=== PATIENT | male | born 1995 | race Two or more races ===

== ENCOUNTER 2023-09-13 04:15 | Emergency (ER) | payer SELFPAY ==
[2023-09-13 04:30] VITALS: BP 161/82; PULSE 113; RESP 20; TEMP 98; BMI 31.5
== END 2023-09-13 05:33 | disposition left against medical advice (07) ==
LOC: JER 04:15
DX: Z53.21 Procedure and treatment not carried out due to patient leaving prior to being seen by health care provider (principal)
CPT/HCPCS: 99281-25